=== PATIENT | female | born 1960 | race Caucasian/White ===

== ENCOUNTER 2016-09-21 18:07 | Emergency (ER) | payer BC ==
[~2016-09-21] VITALS: Ht 162.6 cm; Wt 65.9 kg
[~2016-09-21 18:07] MED LIST: IBUP800T23 PO; LEVO.1 PO; LIOT5 PO; LORTA5 PO
[2016-09-21 18:18] VITALS: BP 141/87; PULSE 72; RESP 16; TEMP 98; O2SAT 98
[2016-09-21] MEDS ORDERED: CYTO25TA PO (18:30)
[2016-09-21] MEDS ORDERED: TETANUS/DIPHTHERIA TOXOID ADULT 0.5 ML VIAL IM ONE (18:30)
[2016-09-21] MEDS ORDERED: LEVO.1 PO (18:30)
--- NOTE | 2016-09-21 18:36 | PD ---
HPI Chief Complaint: Laceration/Skin Injury Time Seen by Provider: 18:34 Travel History International Travel<30 days: No Contact w/Intl Traveler<30days: No Traveled to known affect area: No History of Present Illness HPI Patient is a 55-year-old female who presents emergency department for evaluation of a laceration to her right second finger. Patient was making lunch using a mandolin and sliced her finger. This happened at approximately 12 PM, she touching to get the bleeding to stop but hasn't so she presented to the emergency department. Patient is uncertain when her last tetanus vaccination was. PFSH Past Medical History Hx Anticoagulant Therapy: No Blood Disorders: No Anxiety: Yes Depression: No Heart Rhythm Problems: No Cancer: No Cardiovascular Problems: No High Cholesterol: Yes Chemotherapy: No Chest Pain: No Congestive Heart Failure: No Cerebrovascular Accident: No Diabetes: No Diminished Hearing: No Endocrine: No Genitourinary: No Hypertension: No Immune Disorder: No Musculoskeletal: No Neurologic: No Psychiatric: No Respiratory: No Immunizations Current: Yes Radiation Therapy: No Thyroid Disease: Yes (hypothyroidism) Tetanus Vaccination: > 5 Years Influenza Vaccination: No ?: Not Menopausal: Yes Past Surgical History AICD: No Appendectomy: Yes Hysterectomy: No Joint Replacement: No Pacemaker: No Other Surgery: Yes (breast augmentation; right breast implant replaced ) Social History Alcohol Use: Yes (2 TIMES A WEEK) Tobacco Use: No Substance Use: No Allergies-Medications (Allergen,Severity, Reaction): Coded Allergies: No Known Allergies (Verified , 09/21/16) Reported Meds & Prescriptions Reported Meds & Active Scripts Active Reported Synthroid (Levothyroxine Sodium) 100 Mcg Tab 100 Mcg PO DAILY Cytomel (Liothyronine Sodium) 25 Mcg Tab 12.5 Mcg PO DAILY Review of Systems Except as stated in HPI: all other systems reviewed are Neg Skin: Positive Other (laceration) Physical Exam Narrative GENERAL: Well-nourished, well-developed patient. SKIN: Warm and dry. 12 mm x 2 mm skin avulsion to the lateral aspect of the right first finger. HEAD: Normocephalic. EYES: No scleral icterus. No injection or drainage. NECK: Supple, trachea midline. No JVD or lymphadenopathy. CARDIOVASCULAR: Regular rate and rhythm without murmurs, gallops, or rubs. RESPIRATORY: Breath sounds equal bilaterally. No accessory muscle use. GASTROINTESTINAL: Abdomen soft, non-tender, nondistended. MUSCULOSKELETAL: No cyanosis, or edema. BACK: Nontender without obvious deformity. No CVA tenderness. Data Data Last Documented VS Vital Signs Date Time Temp Pulse Resp B/P Pulse Ox O2 Delivery O2 Flow Rate FiO2 09/21/16 18:18 98.0 72 16 141/87 98 Orders Tetanus/Diphtheria Tox Adult (Tetanus/Di (09/21/16 18:30) Bupivacaine Pf 0.5% Inj (Marcaine Pf 0.5 (09/21/16 18:45) MDM Medical Decision Making Medical Screen Exam Complete: Yes Emergency Medical Condition: Yes Interpretation(s) Vital Signs Date Time Temp Pulse Resp B/P Pulse Ox O2 Delivery O2 Flow Rate FiO2 09/21/16 18:18 98.0 72 16 141/87 98 Differential Diagnosis Laceration versus abrasion versus skin avulsion versus other Narrative Course Patient's 55-year-old female who presents emergency for evaluation of a laceration to her right second finger that occurred while making lunch today on a mandolin slicer. Skin is avulsed, approximately 2 mm in width. Tetanus vaccine ordered. Quick clot used over skin avulsion to control bleeding. Was advised to leave dressing on for 24 hours and then remove and apply nonocclusive dressing. Patient was given finger splint to avoid opening the wound again. She was encouraged to follow-up with her primary doctor return to emergency department for any new or worsening symptoms. She verbalizes understanding of instructions. Patient is stable for discharge. Diagnosis Primary Impression: Avulsion of skin of finger Qualified Code: S61.209A - Avulsion of skin of finger, initial encounter Referrals: Primary Care Physician Patient Instructions: General Instructions, Skin Avulsion (ED) Additional Instructions: Follow-up with her primary doctor Leave dressing in place for 24 hours Use finger splint to avoid bending finger and reopening wound Return to emergency department for any new or worsening symptoms Med/Other Pt SpecificInfo: No Change to Meds Scripts Ibuprofen 800 Mg Dns695 Mg PO Q6HR PRN (PAIN) #40 TAB Ref 0 Prov:Deloris De La Paz 09/21/16 Disposition: 01 DISCHARGE HOME Condition: Stable Deloris De La Paz Sep 21, 2016 18:36
[2016-09-21] MEDS ORDERED: BUPIVACAINE HCL PF 0.5% 10 ML VIAL INFIL ONE (18:45)
[2016-09-21] MEDS ORDERED: IBUP800T23 PO (19:15)
== END 2016-09-21 19:24 | disposition home or self-care (01) ==
LOC: PHEFT 18:07
DX: S61.210A Laceration without foreign body of right index finger without damage to nail, initial encounter (principal); E78.00 Pure hypercholesterolemia, unspecified; E03.9 Hypothyroidism, unspecified; Z23 Encounter for immunization; W27.4XXA Contact with kitchen utensil, initial encounter; Y93.G1 Activity, food preparation and clean up; Y92.000 Kitchen of unspecified non-institutional (private) residence as the place of occurrence of the external cause; Y99.8 Other external cause status
CPT/HCPCS: 12001; 90471; 90714